=== PATIENT | male | born 1975 | race Caucasian/White ===

== ENCOUNTER 2017-06-22 09:22 | Emergency (ER) | payer OTHER ==
[~2017-06-22 09:22] MED LIST: Sodium Chloride Irrig Solution 250 ML BOT ONE; Sterile Water Irrigation 250 ML BOT ONE
[2017-06-22] MEDS ORDERED: Adacel (T-DAP) 0.5 ML VIAL ONE (09:54)
[2017-06-22] MEDS ORDERED: Lidocaine 1% 20 ML MDV ONE (09:54)
[2017-06-22] MEDS ORDERED: Triple Antibiotic Oint 1 GM Packet ONE (09:54)
== END 2017-06-22 10:55 | disposition home or self-care (01) ==
LOC: MADERS 09:22
DX: S61.012A Laceration without foreign body of left thumb without damage to nail, initial encounter (principal); Z23 Encounter for immunization; W22.8XXA Striking against or struck by other objects, initial encounter
CPT/HCPCS: 12002; 90471; 90715; J2001